=== PATIENT | female | born 1955 | race American Indian/Alaskan Native ===

== ENCOUNTER 2017-12-19 14:04 | Emergency (ER) | payer BC ==
--- NOTE | 2017-12-19 21:11 | Emergency Department Report ---
ED Extremity Problem HPI - General Chief complaint: Extremity Injury, Lower Stated complaint: SWOLLEN R FOOT Time Seen by Provider: 12/19/17 20:19 Source: patient, family Mode of arrival: Wheelchair Limitations: No Limitations - History of Present Illness Initial comments: Patient here reports that she has right foot at great toe swelling for 3 days and is getting worse. She denies any similar incident in the past. Patient has a history of diabetes, hypertension and high cholesterol. She states she also has a history of her regular heart rhythm and a history of cholecystectomy in the past. She said her pain is 8 out of 10 and worse with movement and when touched and Rest. I asked the patient about her diet and she responded that she has been eating lots of seafood and drinking wine and also eating red meat more than usual. She says she took [id number] medication for pain but it didn't help. She reports that her blood sugars under control and she takes Levemir and metformin. She denies any injury to her right great toe. Denies any fever or chills. Denies any numbness or tingling. Patient does have a primary care physician for follow-up. MD Complaint: joint swelling, joint paint Onset/Timin -: days(s) Location: right, toe (right toe) History of Same: No -: No myalgia, Yes arthralgia, No fever, No associated dyspnea, No associated chest pain Radiation: none Severity scale (0 -10): 8 Quality: aching, constant, other (throbbing) Consistency: constant Improves with: rest Worsens with: weight bearing, walking, exertion, palpation Associated Symptoms: arthralgias. denies: chest pain, shortness of breath, fever, myalgias, rash - Related Data Previous Rx's Medication Instructions Recorded Last Taken Type Acetaminophen/Codeine [Tylenol 1 tab PO Q6H PRN #12 tab 12/19/17 Unknown Rx /Codeine # 3 tab] Ibuprofen [Motrin] 600 mg PO Q8H PRN #12 tablet 12/19/17 Unknown Rx predniSONE [Deltasone] 50 mg PO QAM 3 Days #3 tab 12/19/17 Unknown Rx Allergies Allergy/AdvReac Type Severity Reaction Status Date / Time No Known Allergies Allergy Unverified 12/19/17 14:31 ED Review of Systems ROS: Stated complaint: SWOLLEN R FOOT Other details as noted in HPI Comment: All other systems reviewed and negative Constitutional: no symptoms reported Eyes: denies: eye pain, eye discharge ENT: denies: ear pain, throat pain, congestion Respiratory: no symptoms reported Cardiovascular: denies: chest pain, palpitations, dyspnea on exertion, orthopnea , edema, syncope, paroxysmal nocturnal dyspnea Gastrointestinal: denies: abdominal pain, nausea, vomiting, diarrhea, constipation, hematemesis, melena, hematochezia Genitourinary: denies: urgency, dysuria, frequency, hematuria, discharge, abnormal menses, dyspareunia Musculoskeletal: joint swelling, arthralgia. denies: back pain, myalgia Skin: denies: rash Neurological: denies: headache, weakness, numbness, paresthesias, confusion, abnormal gait, vertigo ED Past Medical Hx - Past Medical History Previous Medical History?: Yes Hx Hypertension: Yes Hx Diabetes: Yes Additional medical history: Irregular HR - Surgical History Past Surgical History?: Yes Hx Cholecystectomy: Yes - Family History Family history: hypertension - Social History Smoking Status: Never Smoker Substance Use Type: Alcohol - Medications Home Medications: Home Medications Medication Instructions Recorded Confirmed Last Taken Type Acetaminophen/Codeine [Tylenol 1 tab PO Q6H PRN #12 tab 12/19/17 Unknown Rx /Codeine # 3 tab] Ibuprofen [Motrin] 600 mg PO Q8H PRN #12 tablet 12/19/17 Unknown Rx predniSONE [Deltasone] 50 mg PO QAM 3 Days #3 tab 12/19/17 Unknown Rx ED Physical Exam - General Limitations: No Limitations General appearance: alert, in no apparent distress - Head Head exam: Present: atraumatic, normocephalic, normal inspection - Eye Eye exam: Present: normal appearance, PERRL, EOMI. Absent: scleral icterus, conjunctival injection, nystagmus, periorbital swelling Pupils: Present: normal accommodation - ENT ENT exam: Present: normal exam, normal orophraynx, mucous membranes moist - Neck Neck exam: Present: normal inspection, full ROM, other (no C-spine tenderness). Absent: tenderness, meningismus, lymphadenopathy, thyromegaly - Respiratory Respiratory exam: Present: normal lung sounds bilaterally. Absent: respiratory distress, chest wall tenderness, accessory muscle use - Cardiovascular Cardiovascular Exam: Present: regular rate, normal rhythm, normal heart sounds. Absent: systolic murmur, diastolic murmur - GI/Abdominal GI/Abdominal exam: Present: soft, normal bowel sounds. Absent: distended, tenderness, guarding, rebound, rigid, organomegaly, mass, bruit, pulsatile mass , hernia - Extremities Exam Extremities exam: Present: normal inspection, full ROM, tenderness (right great toe), normal capillary refill, joint swelling (right great toe), other (no clubbing or cyanosis. Patient with mild flying to right lateral outer great toe , mild erythema with increase in temperature with touch to right great toe. Patient able to move his right great toe but she reports pain with movement. She is able to flex and extend her foot but reports pain in right great toe. She has +2 pulses in all extremities. No neurovascular compromise. Chest 5 strength in all extremities. No laceration, bony tenderness, abrasion or wounds noted. Patient with normal sensation to her lower extremities. No motor deficit noted.). Absent: calf tenderness - Back Exam Back exam: Present: normal inspection, full ROM, other (ambulates without any difficulties). Absent: tenderness, CVA tenderness (R), CVA tenderness (L), muscle spasm, paraspinal tenderness, vertebral tenderness, rash noted - Neurological Exam Neurological exam: Present: alert, oriented X3, normal gait, reflexes normal. Absent: motor sensory deficit - Psychiatric Psychiatric exam: Present: normal affect, normal mood - Skin Skin exam: Present: warm, dry, intact, erythema (erythema to right great toe on the lateral.). Absent: normal color (normal color to extremities except for right great toe with erythema), rash, cyanosis, diaphoretic, urticaria, vesicles , petechiae, pallor, abrasion, ecchymosis - Expanded Skin Exam Expanded Distribution of rash: other (right great toe) Description of rash: Present: tenderness, erythematous, swelling, other ( nailbed is normal). Absent: urticarial, crusting, discharge, fluctuant, indurated ED Course Vital Signs 12/19/17 14:31 Temperature 98.4 F Pulse Rate 85 Respiratory 18 Rate Blood Pressure 148/77 O2 Sat by Pulse 98 Oximetry - Reevaluation(s) Reevaluation #1: 12/19/17 22:57 Patient received Toradol 60 mg IM, Deltasone 60 mg by mouth and Carl[place] 5/325 2 tablets by mouth emergency room for gout attack. She said her pain is now better and at 2 out of 10. ED Medical Decision Making - Radiology Data Radiology results: image reviewed interpreted by me: X-ray image of right foot reviewed by myself and Dr. Wang and it was decided the patient is without osteomyelitis or fracture to right foot. She does have some soft tissue swelling with some arthritic changes to her right foot. Soft tissue swelling is localized at the right great toe where patient is having pain. - Medical Decision Making ED course: She presents to the emergency room with gout flareup for the first time. He has a history of diabetes, hyperlipidemia and hypertension which she says are controlled with medication. Patient gave history when asked of diet, she's been eating and excessive amount of fish, meats and drinking wine over the last couple weeks. She has never had a flareup and she does not know what gout is so therefore I explained to her gout and treatment. She was given Toradol 60 mg IM, Deltasone 60 mg by mouth and [place] 5/325 2 tablets by mouth in emergency room relief of pain. X-ray reviewed and no fracture or dislocation and patient with soft tissue swelling over lying in right great toe where she has erythema and swelling with tenderness to palpate. She has some arthritic changes also. Patient was understanding of discharge instruction, treatment plan and need to follow up with her primary care physician. I told her that I'll put her on prednisone for 3 days but she will need to check her blood sugar 2 hours after she takes the prednisone as this can cause her blood sugar to be elevated. I Also instructed her that she will need to call her primary care physician to schedule follow-up visit acute gout for evaluation and treatment. Patient discharged home with her family with prescription for prednisone, Tylenol No. 3 and Motrin. Critical care attestation.: If time is entered above; I have spent that time in minutes in the direct care of this critically ill patient, excluding procedure time. ED Disposition Clinical Impression: Foot pain, right Acute gout Qualifiers: Gout site: toe Gout etiology: unspecified cause Laterality: right Qualified Code(s): M10.9 - Gout, unspecified Disposition: TO HOME OR SELFCARE Is pt being admited?: No Does the pt Need Aspirin: No Condition: Stable Instructions: Arthralgia (ED), Acute Gouty Arthritis (ED), Low Purine Diet (ED) Additional Instructions: Please see information on gout in discharge instruction paperwork and also on low purine diet which is a diabetic that you need to follow with gout Take medication as prescribed and remember to check your blood sugar 2 hours after taking prednisone. Tylenol 3 will cause drowsiness so please do not drive or operate heavy machinery while taking this medication. Please call your primary care physician in the morning to schedule an appointment for follow-up visit gout attack. Prescriptions: Acetaminophen/Codeine [Tylenol /Codeine # 3 tab] 1 tab PO Q6H PRN #12 tab PRN Reason: Pain, Moderate (4-6) Ibuprofen [Motrin] 600 mg PO Q8H PRN #12 tablet PRN Reason: Pain predniSONE [Deltasone] 50 mg PO QAM 3 Days #3 tab Referrals: PRIMARY CAREMD [Primary Care Provider] - 12/21/17 Forms: Work/School Release Form(ED), Accompanied Note
[2017-12-19] MEDS ORDERED: DELTASONE PO ONE (21:12)
[2017-12-19] MEDS ORDERED: NORCO 5/325 PO ONE (21:12)
[2017-12-19] MEDS ORDERED: TORADOL IM ONE (21:12)
--- NOTE | 2017-12-19 22:45 | XRay Report ---
FINAL REPORT PROCEDURE: XR FOOT 3+V RT TECHNIQUE: RIGHT foot radiographs, AP, lateral, and oblique views. CPT 87115 HISTORY: rt great toe pain, swelling, redness COMPARISON: No prior studies are available for comparison. FINDINGS: Bony alignment is within normal limits. There is narrowing of intertarsal and tarsometatarsal joint spaces with mild degree osteophyte formation. Osteophyte formation is also noted involving metatarsophalangeal and interphalangeal joints. An acute fracture is not identified. A small calcaneal spur is noted. Irregular ossification is identified at the insertion of Achilles tendon consistent with enthesopathy. IMPRESSION: No acute fracture Osteoarthritis..
[2017-12-19 23:18] VITALS: BP 135/68
== END 2017-12-19 23:17 | disposition home or self-care (01) ==
LOC: ED 14:04
DX: M10.9 Gout, unspecified (principal); M79.671 Pain in right foot; I10 Essential (primary) hypertension; E11.9 Type 2 diabetes mellitus without complications
CPT/HCPCS: 73630; 96372; 99283; J1885; J7512